=== PATIENT | male | born 1960 | race Caucasian/White ===

== ENCOUNTER 2019-01-28 14:38 | Emergency (ER) | payer OTHER ==
[2019-01-28] MEDS: HYDROCODONE/APAP (5/325) TAB PO (14:56)
== END 2019-01-28 16:09 | disposition home or self-care (01) ==
LOC: FTE 14:38
DX: S22.42XA Multiple fractures of ribs, left side, initial encounter for closed fracture (principal); E11.9 Type 2 diabetes mellitus without complications; W13.0XXA Fall from, out of or through balcony, initial encounter; Y92.9 Unspecified place or not applicable; Z79.84 Long term (current) use of oral hypoglycemic drugs; Z79.82 Long term (current) use of aspirin
CPT/HCPCS: 71100; 99283-25